=== PATIENT | female | born 1990 | race Two or more races ===

== ENCOUNTER 2021-03-21 06:52 | Day surgery (SDC) | payer OTHER ==
[~2021-03-21 06:52] MED LIST: B12 ACTIVE1000 MCG PO; FOLIC ACID0.4 MG PO; IRON325 MG PO; LAMICTAL200 M1 PO; MAGNESIUM250 M1 PO; VITAMIN C500 M6 PO
== END 2021-03-21 21:50 | disposition home or self-care (01) ==
LOC: CIR.AMB 06:52
PROVIDERS: ATTEND Obstetrics & Gynecology
DX: N84.0 Polyp of corpus uteri (principal); Z20.822 Contact with and (suspected) exposure to COVID-19

== ENCOUNTER 2025-01-27 16:35 | Emergency (ER) | payer OTHER ==
[~2025-01-27] VITALS: Ht 149.9 cm; Wt 53.1 kg
[2025-01-27] MEDS ORDERED: SLOW RELEASE I160 M1 (17:16)
[2025-01-27] MEDS ORDERED: DIETHYLPROPION25 MG PO (17:17)
[2025-01-27 19:09] LABS: BASO % 0.4 % (0.1-1.2); EOS # 0.04 (0.04-0.54); EOS % 0.4 % (0.7-7.0); HEMATOCRIT 27.6 % (34.1-44.9); LYMPH # 2.06 (1.18-3.74); LYMPH % 22.1 % (19.3-53.1); MEAN CORPUSCULAR HEMOGLOBIN 21.4 pg (25.6-32.2); MONO # 0.77 (0.24-0.82); MONO % 8.3 % (4.7-12.5); NEUT # 6.38 (1.56-6.13); NEUT % 68.5 % (34.0-71.1); PLATELET COUNT 305 K/uL (163-369); RED BLOOD COUNT 3.88 M/uL (3.93-5.22); RED CELL DISTRIBUTION WIDTH 19.9 % (11.6-14.4)
[2025-01-27 19:11] LABS: HEMOGLOBIN 8.3 g/dL (11.2-15.7)
[2025-01-27 19:26] LABS: INR 1.04; PARTIAL THROMBOPLASTIN TIME 23.4 SECONDS (22.0-34.0); PROTHROMBIN TIME 11.3 SECONDS (9.0-11.5)
[2025-01-27 19:34] LABS: PH,URINE 6.5 (5.0-8.0); URINE APPEARANCE Clear; URINE BILIRRUBIN Negative (NEGATIVE); URINE BLOOD Negative; URINE COLOR Yellow; URINE GLUCOSE Negative (NEGATIVE); URINE KETONE Trace (NEGATIVE); URINE LEUKOCYTE Small; URINE NITRATE Negative; URINE PROTEIN Negative (NEGATIVE); URINE UROBILINOGEN 0.2 E.U./dl
[2025-01-27 19:38] LABS: URINE BACTERIA 95.3 uL (0.0-1933); URINE EPITHELIAL CELLS 4.5 uL (0.0-38.8); URINE WBC 88.7 uL (0.0-23.2)
[2025-01-27 19:43] LABS: URINE CAST 0.14 uL (0.0-1.40); URINE RBC 1.9 uL (0.0-20.8)
[2025-01-27 19:47] LABS: ALBUMIN 4.1 gm/dL (3.4-5.0); ALKALINE PHOSPHATASE 72 U/L (50-136); ALT/SGPT 17 U/L (12-78); ANION GAP 10 (10.0-20.0); AST/SGOT 14 U/L (15-37); BILIRUBIN TOTAL 0.36 mg/dL (0.3-1.2); BLOOD UREA NITROGEN 10 mg/dL (7-18); BUN CREA RATIO 12 (7.0-25.0); CALCIUM 9.3 mg/dL (8.5-10.1); CARBON DIOXIDE 24 mEq/L (21-32); CHLORIDE 107 mmol/L (98-107); CREATININE SERUM 0.85 mg/dL (0.55-1.02); GFR 76.11; GLOBULINA 3.5 G/DL (2.4-3.5); GLUCOSE FASTING 97 mg/dL (65-100); OSMOLALITY SERUM 273 MOSM/KG (275-295); POTASSIUM 3.93 mEq/L (3.5-5.1); SODIUM 137 mmol/L (136-145); TOTAL PROTEIN 7.6 gm/dL (6.4-8.2)
[2025-01-27 19:51] LABS: HCG QUANTITATIVE < 1 mUI/mL (1-3)
[2025-01-27] MEDS ORDERED: BACTRIM DS TAB1 EACH PO (20:01)
[2025-01-27] MEDS ORDERED: PEPCID AC20 MG PO (20:01)
[2025-01-27] MEDS ORDERED: FERREX 150 FOR1 EACH PO (20:01)
== END 2025-01-27 20:11 | disposition home or self-care (01) ==
LOC: ER 17:03
PROVIDERS: General Practice
DX: R53.1 Weakness (principal); D64.9 Anemia, unspecified; Z88.1 Allergy status to other antibiotic agents

== ENCOUNTER 2025-02-15 07:18 | Outpatient (CLI) | payer OTHER ==
[~2025-02-15 07:18] MED LIST changes: +BACTRIM DS TAB1 EACH PO; +DIETHYLPROPION25 MG PO; +FERREX 150 FOR1 EACH PO; +PEPCID AC20 MG PO; +SLOW RELEASE I160 M1
[2025-02-15 08:52] LABS: INR 1.01
[2025-02-15 14:34] LABS: ob NEGATIVE (NEGATIVE)
[2025-02-16 09:11] LABS: CA 125 44.2 U/mL (0.0-38.1)
[2025-02-16 11:08] LABS: kappa lambda r 1.04 (0.26-1.65); kappa light 11.7 mg/L (3.3-19.4)
[2025-02-16 13:12] LABS: a:g ratio 1.4 (0.7-1.7); alpha 1 g 0.2 g/dL (0.0-0.4); beta g 1.1 g/dL (0.7-1.3); gamma g 0.8 g/dL (0.4-1.8); globulin t 2.8 g/dL (2.2-3.9); prot total 6.6 g/dL (6.0-8.5)
[2025-02-16 15:08] LABS: TISSUE TRANSGLUTAMINASE IGA < 2 U/mL (0-3)
[2025-02-17 13:08] LABS: PARIETAL CELL ANTIBODIES 36.2 Units (0.0-20.0)
[2025-02-17 17:08] LABS: FACTOR VIII ACTIVITY 188 % (56-140); VON WILLERBRAND ACTIVITY 101 % (50-200); VON WILLERBRAND ANTIGEN 110 % (50-200)
== END 2025-02-15 07:26 | disposition home or self-care (01) ==
LOC: LAB 07:18
PROVIDERS: ATTEND Internal Medicine Hematology & Oncology
DX: D50.8 Other iron deficiency anemias (principal); R74.01 Elevation of levels of liver transaminase levels; C18.0 Malignant neoplasm of cecum; C54.1 Malignant neoplasm of endometrium; C25.0 Malignant neoplasm of head of pancreas; K29.40 Chronic atrophic gastritis without bleeding; K90.0 Celiac disease; D68.8 Other specified coagulation defects

== ENCOUNTER 2025-06-28 07:48 | Emergency (ER) | payer OTHER ==
[~2025-06-28] VITALS: Ht 149.9 cm; Wt 59.9 kg
[2025-06-28 08:04] VITALS: BP 122/63; O2SAT 100
[2025-06-28] MEDS ORDERED: DEXAMETHASONE SODIUM PHOSPHATE 4 MG/ML VIAL IM STA (08:35)
[2025-06-28] MEDS ORDERED: CEFTRIAXONE SODIUM 1,000 MG VIAL IM STA (08:37)
[2025-06-28] MEDS ORDERED: GUAIFENESIN 200 MG/10 ML BLIST.PACK PO ONE ×2 (08:45→08:48)
[2025-06-28] MEDS ORDERED: LORATADINE 10 MG TABLET PO ONE (08:45)
[2025-06-28] MEDS ORDERED: LIDOCAINE HCL/MPF 1% 5ML VIAL IJ ONE (08:47)
[2025-06-28] MEDS ORDERED: DEXAMETHASONE SODIUM PHOSPHATE 4 MG/ML VIAL ONE (08:48)
[2025-06-28] MEDS ORDERED: CEFTRIAXONE SODIUM 1,000 MG VIAL ONE (08:48)
[2025-06-28 09:34] LABS: BASO % 0.4 % (0.1-1.2); EOS # 0.27 (0.04-0.54); EOS % 3.0 % (0.7-7.0); LYMPH # 1.88 (1.18-3.74); LYMPH % 20.5 % (19.3-53.1); MEAN PLATELET VOLUME 9.70 fl (9.4-12.4); MONO # 0.80 (0.24-0.82); MONO % 8.7 % (4.7-12.5); NEUT # 6.12 (1.56-6.13); NEUT % 67.0 % (34.0-71.1); RED CELL DISTRIBUTION WIDTH 17.9 % (11.6-14.4)
[2025-06-28 10:37] LABS: COVID-19 AG NEGATIVE (NEGATIVE)
== END 2025-06-28 14:16 | disposition home or self-care (01) ==
LOC: ER 07:49
PROVIDERS: General Practice
DX: J06.9 Acute upper respiratory infection, unspecified (principal); Z20.822 Contact with and (suspected) exposure to COVID-19; Z88.8 Allergy status to other drugs, medicaments and biological substances; Z87.09 Personal history of other diseases of the respiratory system